=== PATIENT | male | born 1995 | race Two or more races ===

== ENCOUNTER 2020-02-05 13:18 | Emergency (ER) | payer OTHER ==
[~2020-02-05] VITALS: Ht 175.3 cm; Wt 89.8 kg
== END 2020-02-05 16:56 | disposition home or self-care (01) ==
LOC: ER 13:18
DX: T75.1XXA Unspecified effects of drowning and nonfatal submersion, initial encounter (principal); W67.XXXA Accidental drowning and submersion while in swimming-pool, initial encounter; Y93.89 Activity, other specified; Y92.59 Other trade areas as the place of occurrence of the external cause; Y99.8 Other external cause status; U07.1 COVID-19